=== PATIENT | female | born 1975 | race Asian ===

== ENCOUNTER → 2017-07-01 | Outpatient (CLI) | payer BC ==
[~2017-07-01] MED LIST: CYCL10TA9 PO; NAPR-243 PO
--- NOTE | 2017-07-01 08:29 | Diagnostic Imaging Report ---
INDICATION: Abdominal pain Abdominal sonography performed in a routine fashion. The liver shows normal echogenicity with no focal lesions. Gallbladder was unremarkable with no gallstones or wall thickening. Common duct measured 3 mm. The pancreas was unremarkable. The spleen was normal in size and showed no focal abnormality. The aorta and IVC were unremarkable. The right kidney was normal and measured 9.4 cm in length. The left kidney measured 9.5 cm in length and shows no hydronephrosis. There was an echogenic mass in the left kidney measuring 2.0 x 1.9 x 1.8 cm. There is no ascites. IMPRESSION: No gallstones or gallbladder pathology. There is a 2.0 x 1.9 x 1.8 cm echogenic mass in the left kidney. Differential diagnoses would include angiomyolipoma or renal carcinoma. Would recommend further evaluation with CT pre-and post IV contrast to better characterize this finding. Dictated by: Dictated on workstation # [id number]
== END ==
LOC: RAD 07:12
PROVIDERS: ATTEND Family Medicine
DX: N28.89 Other specified disorders of kidney and ureter (principal)
CPT/HCPCS: 76700

== ENCOUNTER → 2017-07-08 | Outpatient (CLI) | payer BC ==
[~2017-07-08] MED LIST changes: +CATHETER FLUSH 10 ML SYR IV PRN; +IOHEXOL 350 MG/ML 100 ML (OMNIPAQUE 350) VIAL IV ONE; +NS 100 ML (IVPB) BAG IV ONE
--- NOTE | 2017-07-08 10:23 | Diagnostic Imaging Report ---
PROCEDURE: CT abdomen with and without contrast. TECHNIQUE: Multiple contiguous axial CT images of the abdomen were obtained prior to and after intravenous administration of iodinated contrast. INDICATION: Renal mass. FINDINGS: The heart size is normal. The lung bases are clear. The liver is normal in size without focal lesions. There is no biliary ductal dilatation. Gallbladder is unremarkable. Spleen is normal. The pancreas and adrenal glands are unremarkable. There is a 1.3 cm fatty containing mass in the posterior aspect of the left kidney compatible with angiomyolipoma. No other discrete liver lesions are appreciated. The aorta is nonaneurysmal. Bowel gas pattern is nonspecific. There is no free air. There is no ascites. IMPRESSION: 1. Fat-containing mass in the left kidney compatible with angiomyolipoma. 2. Otherwise unremarkable CT abdomen. Dictated by: Dictated on workstation # [id number]
== END ==
LOC: RAD 08:53
PROVIDERS: ATTEND Family Medicine
DX: N28.89 Other specified disorders of kidney and ureter (principal)
CPT/HCPCS: 74170

== ENCOUNTER → 2017-07-18 | Outpatient (CLI) | payer BC ==
[~2017-07-18] MED LIST changes: -IOHEXOL 350 MG/ML 100 ML (OMNIPAQUE 350) VIAL IV ONE; -NS 100 ML (IVPB) BAG IV ONE
--- NOTE | 2017-07-18 14:04 | Diagnostic Imaging Report ---
EXAMINATION: HIDA with EF measurements Indication: Abdominal pain TECHNIQUE: After the intravenous administration of 5.3 mCi of Tc 99m Choletec, imaging over the abdomen was obtained. This was followed by administration of Ensure orally to stimulate intrinsic CCK secretion, followed by continued imaging with ejection fraction measured. FINDINGS: There is homogeneous uptake in the liver with prompt bile duct and gallbladder filling seen. Bowel activity is seen at 65 minutes. Based on further imaging and gallbladder area of interest activity measurements after the administration of Ensure, the gallbladder ejection fraction is estimated at 91%. IMPRESSION: 1. Normal hepatobiliary uptake and Gallbladder filling. 2. Normal gallbladder ejection fraction. Dictated by: Dictated on workstation # [id number]
== END ==
LOC: CARD 09:42
PROVIDERS: ATTEND Family Medicine
DX: R10.11 Right upper quadrant pain (principal)
CPT/HCPCS: 78227

== ENCOUNTER → 2019-02-02 | Outpatient (CLI) | payer BC ==
[~2019-02-02] MED LIST changes: -CATHETER FLUSH 10 ML SYR IV PRN
--- NOTE | 2019-02-02 14:58 | Diagnostic Imaging Report ---
PROCEDURE: US Non-ob pelvis comp/trans. TECHNIQUE: Multiple realtime grayscale images were obtained of the pelvis in various projections endovaginally. Transabdominal imaging was also performed. INDICATION: Vaginal bleeding. FINDINGS: The uterus is retroflexed measuring 7.0 x 5.1 x 4.4 cm. Endometrium is 10 mm in thickness. No myometrial mass is detected. Right ovary measures 2.4 x 2.3 x 1.3 cm and the left ovary measures 3.1 x 1.9 x 1.5 cm. There is a 17 mm x 10 mm cyst involving the left ovary. Ovaries show blood flow. There is some free fluid in the posterior cul-de-sac which does show some internal echoes. IMPRESSION: 1. Simple 17 mm left ovarian cyst. 2. Mild free fluid in the posterior cul-de-sac with internal complexity, perhaps owing to recent rupture of an ovarian cyst. Dictated by: Dictated on workstation # [id number]
== END ==
LOC: RAD 10:46
PROVIDERS: ATTEND Nurse Practitioner Family
DX: N83.202 Unspecified ovarian cyst, left side (principal)
CPT/HCPCS: 76830; 76856

== ENCOUNTER 2019-10-15 13:53 | Outpatient (CLI) | payer BC ==
[~2019-10-15] VITALS: Ht 149 cm; Wt 52.0 kg
[2019-10-15 14:06] VITALS: BP 131/90
[2019-10-15 14:36] LABS: BASOPHILS # (AUTO) 0.1 10^3/uL (0.0-0.1); BASOPHILS % (AUTO) 1 % (0-10); EOSINOPHILS # (AUTO) 0.3 10^3/uL (0.0-0.3); EOSINOPHILS % (AUTO) 5 % (0-10); HEMATOCRIT 40 % (35-52); HEMOGLOBIN 13.5 G/DL (11.5-16.0); LYMPHOCYTES # (AUTO) 1.6 X 10^3 (1.0-4.0); LYMPHOCYTES % (AUTO) 25 % (12-44); MEAN CORPUSCULAR HEMOGLOBIN 33 PG (25-34); MEAN CORPUSCULAR HGB CONC 34 G/DL (32-36); MEAN CORPUSCULAR VOLUME 98 FL (80-99); MONOCYTES # (AUTO) 0.5 X 10^3 (0.0-1.0); MONOCYTES % (AUTO) 8 % (0-12); NEUTROPHILS % (AUTO) 61 % (42-75); PLATELET COUNT 385 10^3/uL (130-400); RED CELL DISTRIBUTION WIDTH 12.2 % (10.0-14.5); WHITE BLOOD COUNT 6.4 10^3/uL (4.3-11.0)
[2019-10-15 14:41] LABS: BILIRUBIN,URINE NEGATIVE (NEGATIVE); CLARITY,URINE CLEAR; COLOR,URINE YELLOW; GLUCOSE, URINE (UA) NEGATIVE (NEGATIVE); KETONES,URINE NEGATIVE (NEGATIVE); LEUKOCYTE ESTERASE ,URINE NEGATIVE (NEGATIVE); NITRITE,URINE NEGATIVE (NEGATIVE); PH,URINE 6.5 (5-9); PROTEIN,URINE NEGATIVE (NEGATIVE)
[2019-10-15 14:52] LABS: AMORPHOUS SEDIMENT,UR RARE AMOR URATES /LPF; BACTERIA,URINE NEGATIVE /HPF; RBC,URINE RARE /HPF; SQUAMOUS EPITHELIAL CELL,UR RARE /HPF; WBC,URINE RARE /HPF
== END 2019-10-15 15:00 | disposition home or self-care (01) ==
LOC: PREOP 13:53
PROVIDERS: ATTEND Obstetrics & Gynecology
DX: Z01.812 Encounter for preprocedural laboratory examination (principal); N92.0 Excessive and frequent menstruation with regular cycle; N94.6 Dysmenorrhea, unspecified; Z80.59 Family history of malignant neoplasm of other urinary tract organ
CPT/HCPCS: 36415; 81000; 85025; 86850; 86900; 86901; 87081